=== PATIENT | female | born 1945 | race Two or more races ===

== ENCOUNTER 2023-02-28 19:34 | Emergency (ER) | payer OTHER, MEDICAID ==
[~2023-02-28] VITALS: Ht 165.1 cm; Wt 63.7 kg
[2023-02-28] MEDS ORDERED: HYDROcodone-ACET 5/325MG TAB PO ONE (20:45)
[2023-02-28] MEDS ORDERED: ONDANSETRON ODT 4 MG TAB PO ONE (20:45)
[2023-02-28] MEDS ORDERED: ACE3T PO ×2 (21:51)
[2023-02-28 22:17] VITALS: BP 134/58
[2023-03-02] MEDS ORDERED: ACE3T PO (19:09)
== END 2023-02-28 22:40 | disposition home or self-care (01) ==
LOC: ER 19:34
DX: S82.001A Unspecified fracture of right patella, initial encounter for closed fracture (principal); S80.02XA Contusion of left knee, initial encounter; W01.0XXA Fall on same level from slipping, tripping and stumbling without subsequent striking against object, initial encounter; Y93.01 Activity, walking, marching and hiking; Y92.89 Other specified places as the place of occurrence of the external cause; Y99.8 Other external cause status
CPT/HCPCS: 29505; 73562; 99283; Q0162

== ENCOUNTER 2023-03-19 08:34 | Observation (INO) | payer OTHER ==
[~2023-03-19] VITALS: Ht 152.4 cm; Wt 62.7 kg
[~2023-03-19 08:34] MED LIST: CHOL100047 PO; DICL75TA3 PO; DULA1INJ SC; FOLI-119 PO; GABA-1308 PO; KRIL1CAP14 PO; LEVO25TA49 PO; LISI40TA16 PO; METF-490 PO; OMEP20TA PO; RAME8TAB17 PO; SERT-206 PO; SIMV10TA20 PO
[2023-03-19] MEDS ORDERED: ceFAZolin 1GM/50ML 100 ML IV ONE (08:47)
[2023-03-19] MEDS ORDERED: MIDAZOLAM HCL 2MG/2ML 2ml VIAL (1mg/ml) ONE (09:18)
[2023-03-19] MEDS ORDERED: fentaNYL CITRATE 100 MCG/2 ML VL ONE (09:18)
[2023-03-19] MEDS ORDERED: MORPHINE SULF PF 5 MG/10 ML VIAL ONE (09:18)
[2023-03-19] MEDS ORDERED: ONDANSETRON HCL 4 MG/2 ML VIAL ONE (09:19)
[2023-03-19] MEDS ORDERED: GLYCOPYRROLATE 0.2 MG/ML 1ML VIAL ONE (09:19)
[2023-03-19] MEDS ORDERED: ePHEDrine SULFATE 50 MG/ML AMP ONE (09:19)
[2023-03-19] MEDS ORDERED: ROPIVACAINE 0.5% (5MG/ML) 20ML AMPULE IJ ONE (11:38)
[2023-03-19] MEDS ORDERED: BUPIVACAINE 0.5% P/F INJ 10 ML VIAL ONE (11:38)
[2023-03-19] MEDS ORDERED: PROPOFOL 10 MG/ML 20 ML IV ONE (11:39)
[2023-03-19] MEDS ORDERED: MORPHINE SULFATE INJ 2 MG/ml SYRG IV PRN (13:15)
[2023-03-19] MEDS ORDERED: NALOXONE HCL 0.4 MG/ML VIAL IV PRN (13:15)
[2023-03-19] MEDS ORDERED: KETOROLAC TROMETH 30 MG/ML 1ML VIAL IV PRN (13:15)
[2023-03-19] MEDS ORDERED: HYDROmorphone HCL 2 MG/ML VL/or syr IV PRN (13:15)
[2023-03-19] MEDS ORDERED: MORPHINE SULFATE 4 MG/ML SYR/VIAL IV PRN (13:15)
[2023-03-19] MEDS ORDERED: ONDANSETRON HCL 4 MG/2 ML VIAL IV PRN ×3 (13:15)
[2023-03-19] MEDS ORDERED: NITROGLYCERIN 0.4 MG SL TAB SL PRN (13:15)
[2023-03-19] MEDS ORDERED: ACETAMINOPHEN 325 MG TAB PO PRN (13:15)
[2023-03-19] MEDS ORDERED: ACCU-CHEK COMFORT CURVE STRIP VI ONE (13:15)
[2023-03-19] MEDS ORDERED: HYDROcodone-ACET 5/325MG TAB PO PRN (13:15)
[2023-03-19] MEDS ORDERED: DexAMETHasone SOD PHOS 10MG/1ML VIAL INJ IV PRN (13:15)
[2023-03-19] MEDS ORDERED: BISACODYL 5 MG EC TAB PO PRN (13:15)
[2023-03-19] MEDS ORDERED: HYDROcodone-ACET 10/325MG TAB PO PRN (13:15)
[2023-03-19] MEDS ORDERED: KETAMINE 50mg/ML 10ml Vial (500mg/10ml) IV ONE (17:37)
[2023-03-19] MEDS: LACTATED RINGER'S 1,000 ML IV SCH (20:31)
[2023-03-19] MEDS: oxyCODONE ER 10 MG TAB PO SCH (21:07)
[2023-03-19] MEDS: DOCUSATE SOD 100 MG CAP PO SCH (21:07)
[2023-03-19 21:30] VITALS: BP 141/66
[2023-03-20] VITALS (20 sets, daily range): BP systolic 108–158; BP diastolic 47–78
[2023-03-20] MEDS: LACTATED RINGER'S 1,000 ML IV SCH (05:39)
[2023-03-20 06:18] LABS: BUN/Creatinine Ratio 17.9 (10.0-20.0); Calcium 8.8 mg/dL (8.5-10.1)
[2023-03-20 06:30] LABS: Basophils # (auto) 0 10 ^3/uL (0-0.2); Basophils % (auto) 0.3 % (0.0-2.0); Eosinophils # (auto) 0 10 ^3/uL (0-0.8); Hematocrit 32.9 % (36.0-46.0); Hemoglobin 10.8 g/dL (12.2-16.2); Lymphocytes # (auto) 1.5 10 ^3/uL (0.4-5.4); Lymphocytes % (auto) 11.6 % (10.0-50.0); Mean Corpuscular Hgb Conc. 32.7 g/dL (32.0-36.0); Mean Corpuscular Volume 91.8 fL (80.0-100.0); Monocytes # (auto) 0.6 10 ^3/uL (0-1.3); Monocytes % (auto) 4.9 % (0.0-12.0); Neutrophils # (auto) 10.7 10 ^3/uL (1.6-8.6); Neutrophils % (auto) 83.2 % (37.0-80.0); Red Blood Cells 3.58 10^6/uL (4.0-5.20); Red Cell Distribution Width 13.7 % (11.8-14.3); White Blood Cell 12.9 10^3/uL (4.4-10.8)
[2023-03-20] MEDS: diphenhdrAMINE HCL 50 MG/1 ML VL IV PRN ×2 (08:37→14:24)
[2023-03-20] MEDS: oxyCODONE ER 10 MG TAB PO SCH (09:30)
[2023-03-20] MEDS: DOCUSATE SOD 100 MG CAP PO SCH (09:30)
[2023-03-20] MEDS ORDERED: DEXTROSE (50%) 50ML SYRG IV PRN (13:00)
[2023-03-20] MEDS ORDERED: GABAPENTIN 100 MG CAP PO SCH (14:00)
[2023-03-20] MEDS ORDERED: ACCU-CHEK COMFORT CURVE STRIP VI SCH (17:00)
[2023-03-20] MEDS ORDERED: InsuLIN REG 1unit/0.01ml Soln (100units/ml) SC SCH (17:00)
[2023-03-20] MEDS ORDERED: ATORVASTATIN 20 MG TAB PO SCH (22:00)
[2023-03-21] MEDS ORDERED: LEVOTHYROXINE SODIUM 25 MCG TAB PO SCH (10:00)
[2023-03-21] MEDS ORDERED: LISINOPRIL 20 MG TAB PO SCH (10:00)
[2023-03-21] MEDS ORDERED: FOLIC ACID 1 MG TAB PO SCH (10:00)
[2023-03-21] MEDS ORDERED: PANTOPRAZOLE 40 MG TAB PO SCH (10:00)
[2023-03-21] MEDS ORDERED: SERTRALINE HCL 50 MG TAB PO SCH (10:00)
== END 2023-03-20 17:38 | disposition home or self-care (01) ==
LOC: SUR 08:34 → TELE 13:20 → TELE-EAST 17:48
PROVIDERS: ADMIT Physician Assistant; ATTEND Orthopaedic Surgery Sports Medicine
DX: S82.031A Displaced transverse fracture of right patella, initial encounter for closed fracture (principal); I10 Essential (primary) hypertension; E11.9 Type 2 diabetes mellitus without complications; E78.5 Hyperlipidemia, unspecified; E03.9 Hypothyroidism, unspecified; X58.XXXA Exposure to other specified factors, initial encounter; Y93.89 Activity, other specified; Y92.89 Other specified places as the place of occurrence of the external cause
CPT/HCPCS: 27524; 36415; 73560; 80048; 82962; 85025; 96374; 96375; 96376; 97163; C1713; C1769; G0378; J0690; J1200; J2250; J2270; J2405; J2704; J2795; J3010; J3490; 76000